=== PATIENT | male | born 1980 | race Caucasian/White ===

== ENCOUNTER 2021-05-28 16:50 | Emergency (ER) | payer MEDICAID ==
[~2021-05-28] VITALS: Ht 162.6 cm; Wt 86.2 kg
[2021-05-28 16:59] VITALS: BP 134/75
--- NOTE | 2021-05-28 17:05 | NUR ---
PT AMB TO BED 5.
[2021-05-28] MEDS ORDERED: AMOXIL/CLAVULANATE 875/125 MG 1 TAB PO ONE (17:10)
--- NOTE | 2021-05-28 17:12 | NUR ---
41/M BIB SELF WITH C/O LOWER LIP PAIN. PATIENT STATES SINCE YESTERDAY HE BELIEVES HE HAD AN "INGROWN HAIR" UNDER HIS LIP STATING HE BEGAN FEELING PAIN AND SWELLING WORSENING TODAY. PATIENTS LEFT SIDE OF LOWER LIP IS RED, TENDER AND SWOLLEN. PATIENT REPORTS JUST FINISHING BACTRIM AND KEFLEX DUE TO LEG CELLULITIS, REPORTS 6/10 THROBBING PAIN THAT WORSENS WITH TOUCHING OF SITE. DENIES USING ANY NEW PRODUCTS, DENIES TONGUE SWELLING OR DIFFICULTY SWALLOWING OR SPEAKING. PATIENT DENIES SOB, CP OR FEVERS.
[2021-05-28] MEDS ORDERED: ACET-8386 PO (18:44)
[2021-05-28] MEDS ORDERED: AMOX-1000 PO (18:44)
[2021-05-28] MEDS ORDERED: HYDROcodone/APAP 5/325 MG 1 TAB TAB PO ONE (18:50)
[2021-05-28 19:11] VITALS: BP 150/74
--- NOTE | 2021-05-28 19:12 | NUR ---
Patient discharged with v/s stable. Written and verbal after care instructions ABOUT CELLULITIS given and explained. Patient alert, oriented and verbalized understanding of instructions. Ambulatory with steady gait. All questions addressed prior to discharge. ID band removed. Patient advised to follow up with PMD. Rx of NORCO 5-325 AND AUGMENTIN given. Patient educated on indication of medication including possible reaction and side effects. Opportunity to ask questions provided and answered. EDUCATED ON USE OF NARCOTICS, EDUCATED TO NOT DRINK OR DRIVE WHILE USING, PATIENT VERBALIZED UNDERSTANDING.
== END 2021-05-28 19:11 | disposition home or self-care (01) ==
LOC: MED 16:50
DX: K13.0 Diseases of lips (principal); L73.9 Follicular disorder, unspecified; Z79.899 Other long term (current) drug therapy
CPT/HCPCS: 99283